=== PATIENT | male | born 1995 | race Caucasian/White ===

== ENCOUNTER 2018-10-05 23:19 | Emergency (ER) | payer BC ==
--- NOTE | 2018-10-05 23:48 | ED ---
Allergic Reaction/Systemic - HPI Summary HPI Summary: Pt is a 23 y/o male who presents to the ED c/o allergic reaction. Around 21:45 tonight he began to have a diffuse rash, lip swelling, sore throat, and difficulty swallowing. Pain is rated a 4/10 in severity. As per nurses note pt s uvula is slightly swollen. Pt took 1 Zyrtec and 2 Benadryl with some relief. He denies any SOB. Pt states he had a similar but less severe rash 2 days ago and 4 days ago. He thought it was because he switched laundry detergents recently, however he re-washed everything with his old detergent yesterday. Pt had [employer] food for dinner tonight, but denies eating any fish, nuts, or dairy. Known allergies to sulfamethoxazole, trimethoprim, dust, surgical tape. - History of Current Complaint Chief Complaint: EDAllergicReaction Time Seen by Provider: 10/05/18 23:30 Hx Obtained From: Patient Onset/Duration: Gradual Onset, Started hours ago - 21:45, Resolved - somewhat Severity Currently: Moderate Pain Intensity: 4 Pain Scale Used: 0-10 Numeric Location: Diffuse Character: Hives Aggravating Factor(s): Other - Unknown Alleviating Factor(s): OTC Meds - Zyrtec, Benadryl Associated Signs And Symptoms: Positive: Rash. Negative: Difficulty Breathing - Allergies/Home Medications Allergies/Adverse Reactions: Allergies Allergy/AdvReac Type Severity Reaction Status Date / Time sulfamethoxazole Allergy Rash And Verified 10/05/18 23:25 [From ] Itching trimethoprim [From ] Allergy Rash And Verified 10/05/18 23:25 Itching Home Medications: Home Medications Rizatriptan Benzoate [Rizatriptan Benzoate Odt] 10 mg PO DAILY PRN 10/05/18 [ History Confirmed 10/05/18] PMH/Surg Hx/FS Hx/Imm Hx Endocrine/Hematology History: Denies: Hx Diabetes Cardiovascular History: Denies: Hx Hypertension, Hx Pacemaker/ICD Respiratory History: Denies: Hx Asthma GI History: Reports: Other GI Disorders - Appendix on the left side History: Denies: Hx Renal Disease Sensory History: Denies: Hx Hearing Aid Neurological History: Reports: Hx Migraine Psychiatric History: Denies: Hx Panic Disorder - Surgical History Surgery Procedure, Year, and Place: abdominal surgery at -[facility]. EAR TUB[facility] Infectious Disease History: No Infectious Disease History: Denies: Traveled Outside the [place] in Last 30 Days - Family History Known Family History: Negative: Cardiac Disease, Hypertension - Social History Alcohol Use: Occasionally Hx Substance Use: Yes Substance Use Type: Reports: Marijuana Hx Tobacco Use: No Smoking Status (MU): Never Smoked Tobacco Review of Systems Positive: Sore Throat, Other - lip swelling, difficulty swallowing Negative: Shortness Of Breath Positive: Rash - diffuse All Other Systems Reviewed And Are Negative: Yes Physical Exam - Summary Physical Exam Summary: Appearance: well appearing, no pain distress Skin: warm, dry, reflects adequate perfusion, widespread but mild urticaria Head/face: normal Eyes: EOMI, YON ENT: mucous membranes moist, normal oropharynx Neck: supple, non-tender Respiratory: CTA, breath sounds present Cardiovascular: RRR, pulses symmetrical Abdomen: non-tender, soft Bowel Sounds: present Musculoskeletal: normal, strength/ROM intact Neuro: normal, sensory motor intact, A&Ox3 Triage Information Reviewed: Yes Vital Signs On Initial Exam: Initial Vitals Temp Pulse Resp BP Pulse Ox 98.1 F 76 16 149/97 97 10/05/18 23:22 10/05/18 23:22 10/05/18 23:22 10/05/18 23:22 10/05/18 23:22 Vital Signs Reviewed: Yes Diagnostics - Vital Signs Vital Signs Temp Pulse Resp BP Pulse Ox 10/05/18 23:22 98.1 F 76 16 149/97 97 - Laboratory Lab Statement: Any lab studies that have been ordered have been reviewed, and results considered in the medical decision making process. Allergic Reaction Course/Dx - Diagnoses Provider Diagnoses: Urticaria, Allergic reaction Discharge - Sign-Out/Discharge Documenting (check all that apply): Patient Departure - Discharge Patient Received Moderate/Deep Sedation with Procedure: No - Discharge Plan Condition: Improved Disposition: HOME Referrals: No Primary Care Phys,NOPCP [Primary Care Provider] - - Attestation Statements Document Initiated by Scribe: Yes Documenting Scribe: Maddy Valverde Provider For Whom Scribe is Documenting (Include Credential): Willi Dyer MD Scribe Attestation: Maddy Ramirez, scribed for Willi Dyer MD on 10/05/18 at 2352. Status of Scribe Document: Ready
[2018-10-05] MEDS ORDERED: Famotidine TAB* 20 MG PO ONE (23:57)
[2018-10-05] MEDS ORDERED: Dexamethasone TAB* 4 MG PO ONE (23:57)
[2018-10-05] MEDS ORDERED: diPHENhydraMINE PO* 25 MG PO ONE (23:57)
[2018-10-06 00:46] VITALS: BP 127/74
== END 2018-10-06 00:40 | disposition home or self-care (01) ==
LOC: ED 23:19
DX: T78.40XA Allergy, unspecified, initial encounter (principal); L50.9 Urticaria, unspecified; X58.XXXA Exposure to other specified factors, initial encounter; R21 Rash and other nonspecific skin eruption; Z88.2 Allergy status to sulfonamides; J02.9 Acute pharyngitis, unspecified
CPT/HCPCS: 99282; A9270-GY; J8540